=== PATIENT | male | born 1945 | race Caucasian/White ===

== ENCOUNTER 2022-07-28 14:29 | Emergency (ER) | payer MEDICARE, BC ==
[2022-07-28] MEDS ORDERED: HYDROmorphone 1 MG/ML Syringe IVPUSH ONE ×2 (15:20→17:28)
[2022-07-28] MEDS ORDERED: cefTRIAXone 1 GM in Sodium Chloride 0.9% 100 ML IV ONE (15:21)
[2022-07-28] MEDS ORDERED: Lidocaine 1% 20 ML MDV INJECT ONE (17:19)
== END 2022-07-28 18:35 | disposition home or self-care (01) ==
LOC: JD.ED 14:29
DX: S61.214A Laceration without foreign body of right ring finger without damage to nail, initial encounter (principal); S61.210A Laceration without foreign body of right index finger without damage to nail, initial encounter; I10 Essential (primary) hypertension; Z88.0 Allergy status to penicillin; Z88.8 Allergy status to other drugs, medicaments and biological substances; Z87.891 Personal history of nicotine dependence; W23.0XXA Caught, crushed, jammed, or pinched between moving objects, initial encounter
CPT/HCPCS: 12004; 73120; 96365; 96375; 96376; 99283; J0696; J1170; J3490; 99284

== ENCOUNTER 2024-09-29 18:43 | Emergency (ER) | payer BC, MEDICARE ==
[2024-09-29 19:58] LABS: A/G RATIO 1.0 (1-2); ALANINE AMINOTRANSFERASE,ALT 22.0 U/L (16-63); ASPARTATE AMNIOTRANSFERASE,AST 18.0 U/L (15-37); BILIRUBIN TOTAL 0.6 mg/dL (0.2-1.0); BLOOD UREA NITROGEN,BUN 16.0 mg/dL (7-18); CARBON DIOXIDE,CO2 25.0 mEq/L (21-32); CHLORIDE,CL 104.0 mEq/L (98-107); CREATININE 1.0 mg/dL (0.7-1.3); EST CRCL DRUG DOSING (CG) 71.93 mL/min; ESTIMATED GFR 78.0 mL/min (>60); GLUCOSE RANDOM 131.0 mg/dL (70-99); POTASSIUM,K 3.7 mEq/L (3.5-5.1); PROTEIN TOTAL,TP 6.3 g/dl (6.4-8.2); SODIUM,NA 138.0 mEq/L (136-145)
== END 2024-09-29 20:45 | disposition home or self-care (01) ==
LOC: JD.ED 18:43
DX: B34.9 Viral infection, unspecified (principal); I10 Essential (primary) hypertension; Z88.8 Allergy status to other drugs, medicaments and biological substances; Z79.899 Other long term (current) drug therapy
CPT/HCPCS: 36415; 71046; 80053; 86140; 87426; 93005; 99285; J7512; 93010; 99283